=== PATIENT | male | born 2000 | race Caucasian/White ===

== ENCOUNTER → 2019-10-19 | Outpatient (CLI) | payer OTHER ==
[2019-10-19 18:19] LABS: ABSOLUTE RETIC # 24 10e9/L (24-90); RETICULOCYTE % 0.44 % (0.50-2.40)
[2019-10-19 18:41] LABS: BAND NEUTROPHILS 2 %; LYMPHOCYTES % (MANUAL) 44 %; NEUTROPHILS % (MANUAL) 46 %
[2019-10-19 18:42] LABS: EOSINOPHILS % (MANUAL) 1 %; MONOCYTES % (MANUAL) 7 %; RBC MORPH NORMAL
== END ==
LOC: LABNPT 18:14
PROVIDERS: ATTEND Family Medicine
DX: Z01.89 Encounter for other specified special examinations (principal)
CPT/HCPCS: 85007; 85045

== ENCOUNTER → 2022-12-03 | Outpatient (CLI) | payer OTHER ==
[~2022-12-03] MED LIST: CATHETER FLUSH 10 ML SYR IVP PRN
--- NOTE | 2022-12-03 18:19 | Diagnostic Imaging Report ---
INDICATION: Right upper quadrant pain. EXAMINATION: HIDA scan, 12/03/2022. FINDINGS: After uneventful administration of 5.23 mCi of technetium-99m Choletec intravenously, subsequent imaging was performed with prompt homogeneous uptake throughout the liver. The gallbladder is seen within 60 minutes. 8 ounces of Ensure administered orally at that time with continued imaging performed. Small bowel visualized. Ejection fraction is calculated at 58%. IMPRESSION: 1. No obstructive process. 2. Normal ejection fraction. Dictated by: Dictated on workstation # [id number]
== END ==
LOC: CARD 11:42
PROVIDERS: ATTEND Family Medicine
DX: R10.11 Right upper quadrant pain (principal)
CPT/HCPCS: 78227

== ENCOUNTER 2023-02-11 18:06 | Emergency (ER) | payer OTHER ==
[~2023-02-11] VITALS: Ht 187 cm; Wt 63.5 kg
--- NOTE | 2023-02-11 18:18 | ED Abdominal Pain ---
General Stated Complaint: RIGHT SIDE PAIN Source of Information: Patient History of Present Illness Date Seen by Provider: Feb 11, 2023 Time Seen by Provider: 18:13 Initial Comments PT ARRIVES VIA POV FROM HOME C/O RLQ PAIN SINCE YESTERDAY PAIN IS SHARP, AND IS WORSE WITH MOVEMENTS PAIN COMES AND GOES, AND IS WORSE TODAY NO RADIATION OF PAIN C/O NAUSEA, NO VOMITING. HAD NORMAL BM YESTERDAY NO URINARY SYMPTOMS AND VOIDING A NORMAL AMOUNT NO FEVER LAST ATE AT 2300 LAST NIGHT. HAS BEEN DRINKING WATER TODAY. NO OTHER FLUIDS TODAY NO HISTORY OF SIMILAR HAD A NORMAL COLONOSCOPY IN SEPTEMBER --WAS HAVING BLOOD IN STOOLS AT THAT TIME. NO PROBLEMS SINCE THEN NO PRIOR ABDOMINAL SURGERIES NO CHRONIC MEDICAL PROBLEMS OR DAILY MEDICATIONS HAS NOT TAKEN ANYTHING FOR PAIN HAS NOT SOUGHT CARE UNTIL TONIGHT ( TUESDAY NIGHT) HAD NORMAL HIDA SCAN HERE 12/03/22 FOR RUQ PAIN PCP: DR. DUNCAN. LAST VISIT WAS 4-5 WEEKS AGO FOR ROUTINE EXAM Allergies and Home Medications Allergies Coded Allergies: latex (Unverified Allergy, Unknown, 12/03/22) Review of Systems Review of Systems Constitutional: no symptoms reported Respiratory: No Symptoms Reported Cardiovascular: No Symptoms Reported Gastrointestinal: See HPI, Abdominal Pain; Denies Constipated, Denies Diarrhea; Nausea, Poor Appetite Genitourinary: No Symptoms Reported Musculoskeletal: no symptoms reported; No back pain Skin: no symptoms reported Psychiatric/Neurological: No Symptoms Reported Endocrine: No Symptoms Reported Hematologic/Lymphatic: No Symptoms Reported Past Gqvrysj-Nwqgoc-Wtihmn Hx Patient Social History Tobacco Use?: No Smokeless Tobacco Frequency: Current Everyday User Use of E-Cig and/or Vaping dev: No Substance use?: No Alcohol Use?: No Past Medical History Surgeries: Yes (COLONOSCOPY 09/2022--NORMAL) Respiratory: No Cardiac: No Neurological: No Genitourinary: No Gastrointestinal: No Musculoskeletal: No Endocrine: No HEENT: No Cancer: No Psychosocial: No Integumentary: No Blood Disorders: No Physical Exam Vital Signs Vital Signs - First Documented 02/11/23 18:13 Temp 36.0 Pulse 87 Resp 14 B/P (MAP) 114/82 (93) Pulse Ox 98 O2 Delivery Room Air Capillary Refill : Height/Weight/BMI Height: '" Weight: lbs. oz. kg; BMI Method: General Appearance: WD/WN, no apparent distress, thin, other (WALKS UPRIGHT AND MOVES WITHOUT DIFFICULTY. 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, no motor/sensory deficits, alert, normal mood/affect, oriented x 3 Skin: normal color, warm/dry; No rash Progress/Results/Core Measures Results/Orders Lab Results Laboratory Tests Test 02/11/23 18:15 02/11/23 18:20 Range/Units White Blood Count 5.1 4.3-11.0 10^3/uL Red Blood Count 5.57 H 4.30-5.52 10^6/uL Hemoglobin 15.9 13.3-17.7 g/dL Hematocrit 46 40-54 % Mean Corpuscular Volume 82 80-99 fL Mean Corpuscular Hemoglobin 29 25-34 pg Mean Corpuscular Hemoglobin Concent 35 32-36 g/dL Red Cell Distribution Width 12.9 10.0-14.5 % Platelet Count 186 130-400 10^3/uL Mean Platelet Volume 10.3 9.0-12.2 fL Immature Granulocyte % (Auto) 0 % Neutrophils (%) (Auto) 55 42-75 % Lymphocytes (%) (Auto) 31 12-44 % Monocytes (%) (Auto) 9 0-12 % Eosinophils (%) (Auto) 3 0-10 % Basophils (%) (Auto) 1 0-10 % Neutrophils # (Auto) 2.8 1.8-7.8 10^3/uL Lymphocytes # (Auto) 1.6 1.0-4.0 10^3/uL Monocytes # (Auto) 0.5 0.0-1.0 10^3/uL Eosinophils # (Auto) 0.2 0.0-0.3 10^3/uL Basophils # (Auto) 0.1 0.0-0.1 10^3/uL Immature Granulocyte # (Auto) 0.0 0.0-0.1 10^3/uL Sodium Level 139 135-145 MMOL/L Potassium Level 3.7 3.6-5.0 MMOL/L Chloride Level 107 98-107 MMOL/L Carbon Dioxide Level 23 21-32 MMOL/L Anion Gap 9 5-14 MMOL/L Blood Urea Nitrogen 13 7-18 MG/DL Creatinine 0.90 0.60-1.30 MG/DL Estimat Glomerular Filtration Rate 123 BUN/Creatinine Ratio 14 Glucose Level 89 70-105 MG/DL Calcium Level 9.5 8.5-10.1 MG/DL Corrected Calcium 8.5-10.1 MG/DL Total Bilirubin 1.0 0.1-1.0 MG/DL Aspartate Amino Transf (AST/SGOT) 15 5-34 U/L Alanine Aminotransferase (ALT/SGPT) 26 0-55 U/L Alkaline Phosphatase 54 40-136 U/L C-Reactive Protein High Sensitivity 0.04 0.00-0.50 MG/DL Total Protein 7.5 6.4-8.2 GM/DL Albumin 4.6 H 3.2-4.5 GM/DL Amylase Level 68 25-125 U/L Lipase 12 8-78 U/L Urine Color YELLOW Urine Clarity CLOUDY Urine pH 7.0 5-9 Urine Specific [place] 1.015 L 1.016-1.022 Urine Protein TRACE H NEGATIVE Urine Glucose (UA) NEGATIVE NEGATIVE Urine Ketones NEGATIVE NEGATIVE Urine Nitrite NEGATIVE NEGATIVE Urine Bilirubin NEGATIVE NEGATIVE Urine Urobilinogen 0.2 < = 1.0 MG/DL Urine Leukocyte Esterase NEGATIVE NEGATIVE Urine RBC (Auto) NEGATIVE NEGATIVE Urine RBC 2-5 H /HPF Urine WBC NONE /HPF Urine Squamous Epithelial Cells 2-5 /HPF Urine Crystals NONE /LPF Urine Bacteria TRACE /HPF Urine Casts NONE /LPF Urine Mucus LARGE H /LPF Urine Culture Indicated NO Urine Opiates Screen NEGATIVE NEGATIVE Urine Oxycodone Screen NEGATIVE NEGATIVE Urine Methadone Screen NEGATIVE NEGATIVE Urine Propoxyphene Screen NEGATIVE NEGATIVE Urine Barbiturates Screen NEGATIVE NEGATIVE Ur Tricyclic Antidepressants Screen NEGATIVE NEGATIVE Urine Phencyclidine Screen NEGATIVE NEGATIVE Urine Amphetamines Screen NEGATIVE NEGATIVE Urine Methamphetamines Screen NEGATIVE NEGATIVE Urine Benzodiazepines Screen NEGATIVE NEGATIVE Urine Cocaine Screen NEGATIVE NEGATIVE Urine Cannabinoids Screen NEGATIVE NEGATIVE My Orders Orders - LARRY ASH DO Ed Iv/Invasive Line Start (02/11/23 18:18) Amylase (02/11/23 18:18) Cbc With Automated Diff (02/11/23 18:18) Comprehensive Metabolic Panel (02/11/23 18:18) Hs C Reactive Protein (02/11/23 18:18) Lipase (02/11/23 18:18) Ua Culture If Indicated (02/11/23 18:18) Ed Iv/Invasive Line Start (02/11/23 18:18) Lactated Ringers (Lr 1000 Ml Iv Solution (02/11/23 18:30) Ondansetron Injection (Zofran Injectio (02/11/23 18:30) Ct Abd/Pelvis Wo(Kidney Stone) (02/11/23 19:00) Ketorolac Injection (Toradol Injection) (02/11/23 19:00) Drug Screen Stat (Urine) (02/11/23 19:00) Medications Given in ED Current Medications Medications Dose Ordered Sig/Hanh Route Start Time Stop Time Status Last Admin Dose Admin Lactated Ringer's 1,000 ml @ 0 mls/hr Q0M ONCE IV 02/11/23 18:30 02/11/23 18:31 DC 02/11/23 18:34 1,000 MLS/HR Ondansetron HCl 4 mg ONCE ONCE IVP 02/11/23 18:30 02/11/23 18:31 DC 02/11/23 18:34 4 MG Vital Signs/I&O 02/11/23 18:13 Temp 36.0 Pulse 87 Resp 14 B/P (MAP) 114/82 (93) Pulse Ox 98 O2 Delivery Room Air Progress Progress Note : Progress Note GIVEN: -IV FLUIDS -ZOFRAN LABS INCLUDING CBC, CMP, UA ORDERED CT SCAN OF ABDOMEN/PELVIS ORDERED PERTINENT LABS: WBC 5.[address] ABDOMEN/PELVIS--PER RADIOLOGIST REPORT AT 1931 Findings: Visualized lung bases: Unremarkable. Liver: Unremarkable as visualized. Gallbladder: Unremarkable. Pancreas: Unremarkable as visualized. Spleen: Unremarkable as visualized. Adrenal glands: Unremarkable. Kidneys/ ureters: Unremarkable as visualized. Aorta: Unremarkable as visualized. Intraabdominal/ retroperitoneal contents: There are multiple subcentimeter mesenteric lymph nodes and lymph nodes in the pericecal region. There are no other significant lymph nodes seen on this exam. Intestines: Unremarkable as visualized. There is a small to moderate amount of stool involving the colon. There is moderate amount of stool involving the right colon. There is no intestinal obstruction. Appendix: The appendix is not enlarged and measures up to 6 mm. There is no fat stranding or fluid adjacent to the appendix.. Bladder: Unremarkable as visualized. Pelvic organs: Unremarkable as visualized. Extra abdominal/ pelvis regions: Unremarkable. Abdominal wall: Unremarkable. Bones: Unremarkable. Impression: 1: There is no CT evidence of acute abdominal or pelvic process. There are no urinary tract stones. Appendix is unremarkable. 2: There is small to moderate amount of stool throughout the colon. There is moderate amount of stool involving the right colon region. Reviewed: Reviewed by Me Departure Impression Primary Impression: Constipation Additional Impressions: Mesenteric adenitis Chronic abdominal pain Disposition: HOME, SELF-CARE Condition: Stable Departure-Patient Inst. Decision time for Depature: 19:40 Referrals: LARRY DUNCAN MD (PCP/Family) Primary Care Physician Patient Instructions: Abdominal Pain, Adult ED, Constipation, Adult (DC), Mesenteric Lymphadenitis (DC) Add. Discharge Instructions: CLEAR LIQUIDS UNTIL YOUR BOWELS HAVE EMPTIED--WATER, BROTH, JELLO, GATORADE--NO FOOD UNTIL YOUR BOWELS HAVE EMPTIED AFTER YOUR BOWELS HAVE EMPTIED, THEN BEGIN A HIGH FIBER DIET DAILY INCREASE YOUR DAILY FLUID INTAKE--DRINK ENOUGH SO YOU ARE URINATING EVERY 2 HOURS WHILE AWAKE TAKE MIRALAX 1 CAPFUL IN 8 OZ OF WATER EVERY HOUR UNTIL YOUR BOWELS HAVE EMPTIED, THEN USE IT AT LEAST ONCE A DAY EVERY DAY TYLENOL AND MOTRIN NEEDED FOR PAIN KEEP YOUR APPOINTMENT ON TUESDAY WITH G[facility] INVESTIGATOR. RETURN TO ER IF SYMPTOMS WORSEN Scripts Amoxicillin/Potassium Clav (Amox Tr-K Clv 875-125 mg Tab) 875 Mg-125 Mg Tablet 1 EACH PO BID for 7 Days, #14 TAB Prov: LARRY ASH DO 02/11/23 LARRY ASH DO Feb 11, 2023 18:17
[2023-02-11 18:23] LABS: BASOPHILS # (AUTO) 0.1 10^3/uL (0.0-0.1); BASOPHILS % (AUTO) 1 % (0-10); EOSINOPHILS # (AUTO) 0.2 10^3/uL (0.0-0.3); EOSINOPHILS % (AUTO) 3 % (0-10); HEMATOCRIT 46 % (40-54); HEMOGLOBIN 15.9 g/dL (13.3-17.7); LYMPHOCYTES # (AUTO) 1.6 10^3/uL (1.0-4.0); LYMPHOCYTES % (AUTO) 31 % (12-44); MEAN CORPUSCULAR HEMOGLOBIN 29 pg (25-34); MEAN CORPUSCULAR HGB CONC 35 g/dL (32-36); MEAN CORPUSCULAR VOLUME 82 fL (80-99); MEAN PLATELET VOLUME 10.3 fL (9.0-12.2); MONOCYTES # (AUTO) 0.5 10^3/uL (0.0-1.0); MONOCYTES % (AUTO) 9 % (0-12); NEUTROPHILS # (AUTO) 2.8 10^3/uL (1.8-7.8); NEUTROPHILS % (AUTO) 55 % (42-75); PLATELET COUNT 186 10^3/uL (130-400); WHITE BLOOD COUNT 5.1 10^3/uL (4.3-11.0)
[2023-02-11 18:25] LABS: BILIRUBIN,URINE NEGATIVE (NEGATIVE); CLARITY,URINE CLOUDY; COLOR,URINE YELLOW; GLUCOSE, URINE (UA) NEGATIVE (NEGATIVE); KETONES,URINE NEGATIVE (NEGATIVE); LEUKOCYTE ESTERASE ,URINE NEGATIVE (NEGATIVE); NITRITE,URINE NEGATIVE (NEGATIVE); PROTEIN,URINE TRACE (NEGATIVE)
[2023-02-11] MEDS ORDERED: LACTATED RINGERS 1,000 ML IV ONE (18:30)
[2023-02-11] MEDS ORDERED: ONDANSETRON 4 MG/2 ML (SDV) Z0FRAN IVP ONE (18:30)
[2023-02-11 18:32] LABS: BACTERIA,URINE TRACE /HPF
[2023-02-11 18:37] LABS: ALBUMIN 4.6 GM/DL (3.2-4.5)
[2023-02-11 18:38] LABS: AMYLASE 68 U/L (25-125); CHLORIDE 107 MMOL/L (98-107); POTASSIUM 3.7 MMOL/L (3.6-5.0); SODIUM 139 MMOL/L (135-145)
[2023-02-11 18:39] LABS: CALCIUM 9.5 MG/DL (8.5-10.1)
[2023-02-11 18:40] LABS: GLUCOSE 89 MG/DL (70-105); TOTAL PROTEIN 7.5 GM/DL (6.4-8.2)
[2023-02-11 18:41] LABS: CARBON DIOXIDE 23 MMOL/L (21-32)
[2023-02-11 18:43] LABS: ALKALINE PHOSPHATASE 54 U/L (40-136)
[2023-02-11 18:44] LABS: GFR ESTIMATED 123
[2023-02-11 18:45] LABS: BUN/CREATININE RATIO 14
[2023-02-11 18:47] LABS: ALANINE AMINOTRANSFERASE 26 U/L (0-55); LIPASE 12 U/L (8-78)
[2023-02-11] MEDS ORDERED: KETOROLAC 30 MG/ML VIAL IVP STA (19:00)
--- NOTE | 2023-02-11 19:24 | Diagnostic Imaging Report ---
Clinical indications: Patient with right lower quadrant pain since yesterday and worse when moving. Patient denies vomiting. Rule out stone. Exam: CT exam of the abdomen and pelvis is performed without IV or oral contrast using stone protocol. Coronal and sagittal reformatted images were created. Auto Exposure Controls were utilized during the CT exam to meet ALARA standards for radiation dose reduction. Comparisons: None. Findings: Visualized lung bases: Unremarkable. Liver: Unremarkable as visualized. Gallbladder: Unremarkable. Pancreas: Unremarkable as visualized. Spleen: Unremarkable as visualized. Adrenal glands: Unremarkable. Kidneys/ ureters: Unremarkable as visualized. Aorta: Unremarkable as visualized. Intraabdominal/ retroperitoneal contents: There are multiple subcentimeter mesenteric lymph nodes and lymph nodes in the pericecal region. There are no other significant lymph nodes seen on this exam. Intestines: Unremarkable as visualized. There is a small to moderate amount of stool involving the colon. There is moderate amount of stool involving the right colon. There is no intestinal obstruction. Appendix: The appendix is not enlarged and measures up to 6 mm. There is no fat stranding or fluid adjacent to the appendix.. Bladder: Unremarkable as visualized. Pelvic organs: Unremarkable as visualized. Extra abdominal/ pelvis regions: Unremarkable. Abdominal wall: Unremarkable. Bones: Unremarkable. Impression: 1: There is no CT evidence of acute abdominal or pelvic process. There are no urinary tract stones. Appendix is unremarkable. 2: There is small to moderate amount of stool throughout the colon. There is moderate amount of stool involving the right colon region. Dictated by: Dictated on workstation # [id number]
[2023-02-11 19:36] LABS: AMPHETAMINE SCREEN, URINE NEGATIVE (NEGATIVE); BARBITURATE SCREEN URINE NEGATIVE (NEGATIVE); BENZODIAZEPINES SCREEN URINE NEGATIVE (NEGATIVE); CANNABINOID SCREEN, URINE NEGATIVE (NEGATIVE); COCAINE SCREEN URINE NEGATIVE (NEGATIVE); METHADONE STAT NEGATIVE (NEGATIVE); OPIATE SCREEN URINE NEGATIVE (NEGATIVE); OXYCODONE STAT NEGATIVE (NEGATIVE); PROPOXYPHENE STAT NEGATIVE (NEGATIVE); TRICYCLIC ANTIDEPRESSANTS SCRE NEGATIVE (NEGATIVE)
[2023-02-11] MEDS ORDERED: AMOX1TAB12 PO (19:46)
[2023-02-11] MEDS ORDERED: AUGMENTIN 875 MG TAB (AMOXICILLIN/CLAVULANATE) PO SCH (20:00)
[2023-02-11 20:11] VITALS: BP 110/74
== END 2023-02-11 20:12 | disposition home or self-care (01) ==
LOC: EDUNIT# 18:06 → ER 18:07
DX: K59.00 Constipation, unspecified (principal); I88.0 Nonspecific mesenteric lymphadenitis; G89.29 Other chronic pain; F17.200 Nicotine dependence, unspecified, uncomplicated; Z91.040 Latex allergy status; Z28.311 Partially vaccinated for COVID-19
CPT/HCPCS: 36415; 74176; 80053; 80306; 81000; 82150; 83690; 85025; 86141

== ENCOUNTER 2023-04-09 22:07 | Emergency (ER) | payer OTHER ==
[~2023-04-09] VITALS: Ht 187 cm; Wt 62.5 kg
[~2023-04-09 22:07] MED LIST changes: +AMOX1TAB12 PO; -CATHETER FLUSH 10 ML SYR IVP PRN
[2023-04-09 22:25] VITALS: BP_SYST 113; BP_SYST 98; BP_DIAS 65; BP_DIAS 67; BP_DIAS 71
[2023-04-09 22:26] LABS: BASOPHILS # (AUTO) 0.1 10^3/uL (0.0-0.1); BASOPHILS % (AUTO) 1 % (0-10); EOSINOPHILS # (AUTO) 0.2 10^3/uL (0.0-0.3); EOSINOPHILS % (AUTO) 3 % (0-10); HEMATOCRIT 43 % (40-54); HEMOGLOBIN 14.7 g/dL (13.3-17.7); LYMPHOCYTES # (AUTO) 1.8 10^3/uL (1.0-4.0); LYMPHOCYTES % (AUTO) 32 % (12-44); MEAN CORPUSCULAR HEMOGLOBIN 29 pg (25-34); MEAN CORPUSCULAR HGB CONC 34 g/dL (32-36); MEAN CORPUSCULAR VOLUME 84 fL (80-99); MONOCYTES # (AUTO) 0.5 10^3/uL (0.0-1.0); MONOCYTES % (AUTO) 9 % (0-12); NEUTROPHILS # (AUTO) 3.1 10^3/uL (1.8-7.8); NEUTROPHILS % (AUTO) 55 % (42-75); PLATELET COUNT 177 10^3/uL (130-400); WHITE BLOOD COUNT 5.6 10^3/uL (4.3-11.0)
[2023-04-09 22:35] LABS: ALBUMIN 4.3 GM/DL (3.2-4.5); CHLORIDE 107 MMOL/L (98-107); POTASSIUM 3.5 MMOL/L (3.6-5.0); SODIUM 141 MMOL/L (135-145)
[2023-04-09 22:36] LABS: CALCIUM 9.3 MG/DL (8.5-10.1)
[2023-04-09 22:37] LABS: GLUCOSE 93 MG/DL (70-105)
[2023-04-09 22:38] LABS: CARBON DIOXIDE 23 MMOL/L (21-32); TOTAL PROTEIN 7.3 GM/DL (6.4-8.2)
[2023-04-09 22:39] LABS: BILIRUBIN,TOTAL 0.7 MG/DL (0.1-1.0)
[2023-04-09 22:41] LABS: ALKALINE PHOSPHATASE 62 U/L (40-136); CREATININE SERUM 1.01 MG/DL (0.60-1.30); GFR ESTIMATED 107
[2023-04-09 22:42] LABS: BUN/CREATININE RATIO 12
[2023-04-09 22:44] LABS: ALANINE AMINOTRANSFERASE 11 U/L (0-55)
[2023-04-09 22:45] LABS: CREATINE KINASE 37 U/L (30-200)
[2023-04-09] MEDS ORDERED: LACTATED RINGERS 1,000 ML IV ONE (22:45)
[2023-04-09 22:52] LABS: CREATINE KINASE MB 0.5 NG/ML (<6.6)
[2023-04-09 23:05] LABS: TSH (THYROID ANALYZER) 0.51 UIU/ML (0.35-4.94)
[2023-04-09 23:06] LABS: BILIRUBIN,URINE NEGATIVE (NEGATIVE); CLARITY,URINE CLEAR; COLOR,URINE YELLOW; GLUCOSE, URINE (UA) NEGATIVE (NEGATIVE); KETONES,URINE NEGATIVE (NEGATIVE); NITRITE,URINE NEGATIVE (NEGATIVE); PROTEIN,URINE NEGATIVE (NEGATIVE)
[2023-04-09 23:07] LABS: BACTERIA,URINE NEGATIVE /HPF; LEUKOCYTE ESTERASE ,URINE NEGATIVE (NEGATIVE); SQUAMOUS EPITHELIAL CELL,UR RARE /HPF
[2023-04-09 23:13] LABS: AMPHETAMINE SCREEN, URINE NEGATIVE (NEGATIVE); BARBITURATE SCREEN URINE NEGATIVE (NEGATIVE); BENZODIAZEPINES SCREEN URINE NEGATIVE (NEGATIVE); CANNABINOID SCREEN, URINE NEGATIVE (NEGATIVE); COCAINE SCREEN URINE NEGATIVE (NEGATIVE); METHADONE STAT NEGATIVE (NEGATIVE); OPIATE SCREEN URINE NEGATIVE (NEGATIVE); OXYCODONE STAT NEGATIVE (NEGATIVE); PROPOXYPHENE STAT NEGATIVE (NEGATIVE); TRICYCLIC ANTIDEPRESSANTS SCRE NEGATIVE (NEGATIVE)
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
[2023-04-09 23:36] VITALS: BP 108/61
--- NOTE | 2023-04-10 07:09 | Diagnostic Imaging Report ---
CLINICAL INDICATIONS: Patient with neuro deficit. EXAM: Axial CT scan of the brain performed without IV contrast. High-resolution axial CT brain images with sagittal and coronal reformations were also created. Auto Exposure Controls were utilized during the CT exam to meet ALARA standards for radiation dose reduction. COMPARISON: None. FINDINGS: There is no evidence of acute cerebral infarct, intracranial hemorrhage, or gross mass effect. There is no dense vessel sign. The brain parenchymal volume appears appropriate for patient's age. There is normal alex-white matter distinction. There is no significant midline shift or herniation. There is no evidence of hydrocephalus. The basal cisterns are unremarkable. The skull, extracranial soft tissue, and orbits are unremarkable. There is minimal ethmoid sinus mucosal thickening. Temporal bones show no significant abnormality. IMPRESSION: There is minimal ethmoid sinus disease. Otherwise, unremarkable CT scan of the brain. There is no dense vessel sign. Results of this report was called to the stroke doctor via the telephone at the time of this exam by the [facility] radiologist Karlo Cat. I agree with [facility] report. Dictated by: Dictated on workstation # [id number]
== END 2023-04-09 23:39 | disposition home or self-care (01) ==
LOC: EDUNIT# 22:07 → ER 22:09
DX: R55 Syncope and collapse (principal); E86.1 Hypovolemia; Z91.040 Latex allergy status; Z28.310 Unvaccinated for COVID-19
CPT/HCPCS: 36415; 70450; 80053; 80306; 80320; 81000; 82550; 82553; 83735; 83874; 84443; 84484; 85025; 93005; 93041